=== PATIENT | female | born 1970 | race Caucasian/White ===

== ENCOUNTER 2021-04-20 03:25 | Emergency (ER) | payer SELFPAY ==
[~2021-04-20] VITALS: Ht 162.6 cm; Wt 59.0 kg
[2021-04-20] MEDS ORDERED: IBUPROFEN 400MG TABLET PO ONE (04:00)
[2021-04-20] MEDS ORDERED: SODIUM CHLORIDE 0.9% 1,000 ML IV ONE ×2 (04:00→05:00)
[2021-04-20 04:39] LABS: HEMATOCRIT. 28.9 % (36.0-48.0); HEMOGLOBIN. 9.6 g/dL (12.0-16.0); MEAN CORPUSCULAR HEMOGLOBIN 29.8 pg (28.0-32.0); MEAN CORPUSCULAR VOLUME 90.2 fL (81.0-99.0); MEAN PLATELET VOLUME 8.9 fl (7.4-10.4); PLATELET 539 x1000/uL (130-400); RED BLOOD CELL COUNT 3.21 mill/uL (4.2-5.4); RED CELL DISTRIBUTION WIDTH 15.2 % (11.6-14.6)
[2021-04-20 04:49] LABS: CHLORIDE 105 mEq/L (98-107)
[2021-04-20 07:13] VITALS: BP 114/52
[2021-04-20 07:33] LABS: PLATELET ESTIMATE INCREASED
[2021-04-20 08:43] LABS: CLARITY URINE CLEAR (CLEAR); COLOR URINE YELLOW (YELLOW); KETONES URINE NEGATIVE (NEGATIVE); LEUKOCYTE ESTERASE URINE 2+ (NEGATIVE); NITRITE URINE NEGATIVE (NEGATIVE); OCCULT BLOOD URINE 2+ (NEGATIVE); PROTEIN URINE NEGATIVE (NEGATIVE); SPECIFIC GRAVITY URINE 1.008 (1.005-1.030); UROBILINOGEN URINE 0.2 E.U./dL (0.2-1.0)
[2021-04-20] MEDS ORDERED: CEPH500C2 MT (14:19)
== END 2021-04-20 07:15 | disposition home or self-care (01) ==
LOC: ER 03:25
DX: N39.0 Urinary tract infection, site not specified (principal); Z20.822 Contact with and (suspected) exposure to COVID-19
CPT/HCPCS: 36415; 71045; 80048; 81003; 85025; 87077; 87086; 87186; 87804; 96360; 99284; C9803; J7030; U0003; U0005

== ENCOUNTER 2022-05-16 17:00 | Inpatient (IN) | payer MEDICAID, OTHER ==
[~2022-05-16] VITALS: Ht 162.6 cm; Wt 61.0 kg
[~2022-05-16 17:00] MED LIST: CEPH500C2 MT
[2022-05-16 19:25] LABS: LYMPHOCYTES % 20.8 % (20.0-50.0); MEAN CORPUSCULAR HEMOGLOBIN 31.7 pg (28.0-32.0); MEAN CORPUSCULAR VOLUME 102.1 fL (81.0-99.0); MEAN PLATELET VOLUME 9.9 fl (7.4-10.4); MONOCYTES % 12.4 % (2.0-8.0); NEUTROPHILS % 65.8 % (40.0-76.0); PLATELET 264 x1000/uL (130-400); RED BLOOD CELL COUNT 2.05 mill/uL (4.2-5.4); RED CELL DISTRIBUTION WIDTH 16.4 % (11.6-14.6)
[2022-05-16 19:27] LABS: CHLORIDE 107 mEq/L (98-107)
[2022-05-16 19:30] LABS: HEMATOCRIT. 20.9 % (36.0-48.0)
[2022-05-16 19:31] LABS: HEMOGLOBIN. 6.5 g/dL (12.0-16.0)
[2022-05-16 19:37] LABS: HCG SCREEN NEGATIVE
[2022-05-16] MEDS ORDERED: ACETAMINOPHEN 325MG TABLET PO PRN (23:15)
[2022-05-16] MEDS ORDERED: CLONIDINE 0.1MG TABLET PO PRN (23:15)
[2022-05-16] MEDS ORDERED: IPRATROPIUM/ALBUTEROL 0.5-3(2.5)MG/3ML NEB HHN PRN (23:15)
[2022-05-16] MEDS ORDERED: DIPHENHYDRAMINE 50MG/ML VIAL IV PRN (23:15)
[2022-05-16] MEDS ORDERED: ONDANSETRON HCL 4MG/2ML INJ IV PRN (23:15)
[2022-05-17 10:27] LABS: BASOPHILS % 1.3 % (0.0-2.0); HEMATOCRIT. 23.2 % (36.0-48.0); HEMOGLOBIN. 7.4 g/dL (12.0-16.0); LYMPHOCYTES % 17.9 % (20.0-50.0); MEAN CORPUSCULAR HEMOGLOBIN 31.1 pg (28.0-32.0); MEAN CORPUSCULAR VOLUME 96.9 fL (81.0-99.0); MEAN PLATELET VOLUME 9.7 fl (7.4-10.4); MONOCYTES % 13.1 % (2.0-8.0); NEUTROPHILS % 67.7 % (40.0-76.0); PLATELET 225 x1000/uL (130-400); RED BLOOD CELL COUNT 2.39 mill/uL (4.2-5.4); RED CELL DISTRIBUTION WIDTH 16.6 % (11.6-14.6)
[2022-05-17 10:33] LABS: CHLORIDE 112 mEq/L (98-107)
[2022-05-17 16:57] VITALS: BP 112/59
== END 2022-05-17 18:10 | disposition home or self-care (01) | DRG 532 ==
LOC: ER 17:00 → MICUSO 22:18 → EDBEDREQSVC 22:22 → EDBEDREQ 22:22 → EDBEDREQTM 22:22 → 7WST 05-17 15:50
PROVIDERS: ADMIT Family Medicine Adult Medicine; ATTEND Family Medicine Adult Medicine
PROC: 30233N1 Transfusion of Nonautologous Red Blood Cells into Peripheral Vein, Percutaneous Approach (ICD-10-PCS; principal; 2022-05-16)
DX: D25.9 Leiomyoma of uterus, unspecified (principal); D62 Acute posthemorrhagic anemia; E03.9 Hypothyroidism, unspecified; M06.9 Rheumatoid arthritis, unspecified
CPT/HCPCS: 36415; 76830; 76856; 80053; 84703; 85025; 86850; 86900; 86920; 93005; 93970; 99291; P9016